=== PATIENT | female | born 1950 | race African-American/Black ===

== ENCOUNTER → 2016-10-30 | Outpatient (CLI) | payer MEDICARE, BC ==
--- NOTE | ~2016-10-30 | CT2 ---
[facility] A Service of [facility] RADIOLOGY TEXT RESULTS PATIENT: PALLAVI ODELL LOCATION: [facility] : 46 UNIT #: [id number] AGE: [address]: Supriya Castañeda MD SEX: F ORDER DR: [id number] [facility] [place] [address] [facility] [address] [place], [place] [address] [id number] O MR#: [id number] Acc #: [id number] NAME: PALLAVI ODELL : 1950 SEX: F STUDY DATE/TIME: 10/30/2016 12:09 UNIT: [facility] ROOM: STUDY DESCRIPTION: CT Abd and Pelv W Cont Attending Physician: Supriya Castañeda M.D. Referring Physician: Supriya Castañeda M.D. Ordering Physician: Supriya Castañeda M.D. Primary Care Physician: Supriya Castañeda M.D. MEDICAL IMAGING REPORT This report is preliminary unless electronic signature is present EXAM CT abdomen and pelvis with contrast INDICATIONS Las-pr-mhgvj abdominal pain for the past 2 months. PROCEDURE Contrast-enhanced CT of the abdomen and pelvis. 100 mL of Isovue-370. COMPARISON None. This CT exam was performed with one or more of the following radiation dose reduction techniques: automatic exposure control, adjustment of mA and/or kV according to patient size, and iterative reconstruction. FINDINGS Abdomen with contrast: Included lung bases are clear. No liver or splenic lesion. The kidneys, adrenal glands, pancreas and gallbladder unremarkable. Bowel loops are nondilated. Moderate colonic stool burden. Appendix is normal. Pelvis with contrast: There is an IUD in the uterus. No pelvic mass or fluid. No aggressive appearing bone lesion. IMPRESSION 1. No acute findings in the abdomen or pelvis. 2. Moderate colonic stool burden. Dictated by... Ole Marroquin M.D. [facility] A Service of [facility] RADIOLOGY TEXT RESULTS PATIENT: PALLAVI ODELL LOCATION: [facility] : 46 UNIT #: [id number] AGE: [address]: Supriya Castañeda MD SEX: F ORDER DR: THIS IS AN ELECTRONICALLY VERIFIED REPORT Ole Marroquin M.D. at 10/31/2016 7:05 AM Luis TD: 10/30/2016 17:12 JOB #: [id number] MEDICAL IMAGING REPORT COPY
[2016-10-30 11:56] LABS: POC - GFR >60.0 mL/min (>60)
== END | disposition home or self-care (01) ==
LOC: CCAT 10:47
PROVIDERS: Family Medicine
DX: R10.9 Unspecified abdominal pain (principal); Z68.29 Body mass index [BMI] 29.0-29.9, adult
CPT/HCPCS: 74177; 82565; Q9967

== ENCOUNTER → 2017-04-18 | Outpatient (CLI) | payer MEDICARE, BC ==
--- NOTE | ~2017-04-18 | BD1 ---
[facility] A Service of [facility] RADIOLOGY TEXT RESULTS PATIENT: PALLAVI ODELL LOCATION: [facility] : 46 UNIT #: [id number] AGE: [address]: Supriya Castañeda MD SEX: F ORDER DR: [id number] [facility] [address] [facility] [place], [place] [address] [id number] O MR#: [id number] Acc #: [id number] NAME: PALLAVI ODELL : 1950 SEX: F STUDY DATE/TIME: 04/18/2017 10:04 UNIT: [facility] ROOM: STUDY DESCRIPTION: BD Dexa Bone Dens 1+ Site Attending Physician: Supriya Castañeda M.D. Ordering Physician: Supriya Castañeda M.D. Primary Care Physician: Supriya Castañeda M.D. MEDICAL IMAGING REPORT This report is preliminary unless electronic signature is present EXAM DXA scan 04/18/2017 HISTORY Status post menopause with no hormone replacement therapy. Osteopenia. Arthritis. Thyroid medication levothyroxine use. FINDINGS Bone mineral density in the lumbar spine from L1-L4 was 0.996 g/cm2 which is 1.4 standard deviations below the mean when compared to the young adult reference population which is characteristic of osteopenia. This is 0.8 standard deviations above the mean when compared to the age-matched population. Bone mineral density in the left femoral neck was 0.888 g/cm2 which is 0.4 standard deviations below the mean when compared to the young adult reference population which is within the range of normal. This is 1 standard deviation above the mean when compared to the age-matched population. IMPRESSION Bone mineral density in the lumbar spine characteristic of osteopenia and within the left hip within the range of normal. Dictated by... Odin Kennedy M.D. THIS IS AN ELECTRONICALLY VERIFIED REPORT Odin Kennedy M.D. at 04/18/2017 4:32 PM FADUMO/ela TD: 04/18/2017 12:01 JOB #: [id number] [facility] A Service of [facility] RADIOLOGY TEXT RESULTS PATIENT: PALLAVI ODELL LOCATION: [facility] #: [id number] : 46 UNIT #: [id number] AGE: [address]: Supriya Castañeda MD SEX: F ORDER DR: MEDICAL IMAGING REPORT Page 1 of 1 COPY
== END | disposition home or self-care (01) ==
LOC: CWCC 09:43
DX: Z13.820 Encounter for screening for osteoporosis (principal); M85.88 Other specified disorders of bone density and structure, other site; Z68.29 Body mass index [BMI] 29.0-29.9, adult
CPT/HCPCS: 77080